=== PATIENT | female | born 1990 | race African-American/Black ===

== ENCOUNTER 2020-03-04 10:52 | Inpatient (IN) ==
[2020-03-04] MEDS ORDERED: CITRIC ACID/SODIUM CITRATE 30 ML UDCUP PO ONE (11:31)
[2020-03-04] MEDS: LABETALOL 100 MG TABLET PO SCH ×2 (11:52→21:21)
[2020-03-04 12:00] LABS: Basophils % 0.2 % (0.0-0.8); Eosinophils # 0.3 10*3/uL (0.0-0.87); Eosinophils % 2.1 % (0.00-10.9); Hematocrit 34.3 VOL% (35.7-47.0); Hemoglobin 11.9 GM/DL (12.0-16.0); Immature Granulocytes % 0.8 %; Lymphocytes # 1.4 10*3/uL (1.4-4.0); Lymphocytes % 11.5 % (21.3-54.2); Mean Corpuscular HGB Conc 34.7 GM/DL (32-36); Mean Corpuscular Volume 81.7 FL (87-102); Mean Platelet Volume 10.6 FL (9.6-12.0); Monocytes % 5.2 % (1.7-12.7); Neutrophils % 80.2 % (38.7-73.9); Platelet Count 272 T/CUMM (130-400); Red Cell Distribution Width 14.1 % (9.3-17.3); White Blood Count 12.4 T/CUMM (4-12)
[2020-03-04] MEDS ORDERED: LACTATED RINGERS 1,000 ML IV SCH (12:00)
[2020-03-04 12:12] LABS: INR 0.9; Partial Thromboplastin Time 28.3 SECS (23.9-33.8)
[2020-03-04 12:27] LABS: Albumin 2.8 G/DL (3.4-5.0); Bilirubin,Total 0.4 MG/DL (0.2-1.0); Calcium 8.6 MG/DL (8.5-10.1); Osmolality,Calculated 269.7 MOS/KG (273-304); Total Protein 7.2 G/DL (6.4-8.3)
[2020-03-04 16:58] LABS: Bilirubin,Urine Negative (Negative); Blood, Urine Negative (Negative); Glucose,Urine (UA) Negative (Negative); Ketones,Urine 5 mg/dL (Negative); Mucus,Urine Few /LPF (Occasional); Nitrite,Urine Negative (Negative); Protein,Urine 30 MG/DL; RBC,Urine 3 /HPF (0-4); Squamous Epithelial Cell,Urine Occasional /HPF (0-10); Urine Appearance CLEAR (Clear); Urine Color Yellow (Yellow); Urine Specific Gravity 1.023 (1.001-1.035); WBC,Urine 2 /HPF (0-6)
[2020-03-05] MEDS: LABETALOL 100 MG TABLET PO SCH (09:16)
[2020-03-05] MEDS ORDERED: LACTATED RINGERS 1,000 ML IV ONE ×2 (12:03→14:12)
[2020-03-05] MEDS ORDERED: FAMOTIDINE 20 MG/2 ML VIAL IV ONE (12:03)
[2020-03-05] MEDS ORDERED: LACTATED RINGERS 1,000 ML IV SCH ×2 (12:30→15:00)
[2020-03-05] MEDS ORDERED: CITRIC ACID/SODIUM CITRATE 30 ML UDCUP ONE (12:56)
[2020-03-05] MEDS ORDERED: OXYTOCIN 10 UNIT/ML VIAL IM ONE (13:30)
[2020-03-05] MEDS ORDERED: MORPHINE 10 MG/10 ML VIAL ONE (13:30)
[2020-03-05] MEDS ORDERED: OXYTOCIN/LR 30 UNIT/1,000 ML BAG IV ONE (13:30)
[2020-03-05] MEDS ORDERED: ONDANSETRON 4 MG/2 ML VIAL ONE (13:32)
[2020-03-05] MEDS ORDERED: BUPIVACAINE SPINAL 0.75% 2 ML AMP SPINAL ONE (13:33)
[2020-03-05] MEDS ORDERED: PHENYLEPHRINE 1 MG/10 ML SYRINGE IV ONE (13:36)
[2020-03-05] MEDS ORDERED: ceFAZolin 3,000 MG in SYRINGE 1 EACH IV ONE (14:00)
[2020-03-05 14:34] LABS: Cord Arterial Blood HCO3 29.5 MMOL/L
[2020-03-05 14:38] LABS: Cord Venous Blood PCO2 48.7 MMHG; Cord Venous Blood PO2 28.3 MMHG
[2020-03-05] MEDS ORDERED: RHO(D) IMMUNE GLOBULIN 300 MCG SYRINGE IM ONE (14:41)
[2020-03-05] MEDS ORDERED: SIMETHICONE CHEW 80 MG TABLET PO PRN (14:41)
[2020-03-05] MEDS ORDERED: OXYTOCIN/LR 20 UNIT/1,000 ML BAG IV ONE (14:41)
[2020-03-05] MEDS ORDERED: ACETAMINOPHEN 325 MG TABLET PO PRN (14:41)
[2020-03-05] MEDS ORDERED: ONDANSETRON 4 MG/2 ML VIAL IV PRN (14:41)
[2020-03-05] MEDS ORDERED: KETOROLAC 30 MG/1 ML VIAL ONE (14:44)
[2020-03-05] MEDS ORDERED: ceFAZolin 1,000 MG in SYRINGE 1 EACH IV SCH (15:00)
[2020-03-05 15:32] LABS: Bilirubin,Urine Negative (Negative); Blood, Urine Negative (Negative); Glucose,Urine (UA) Negative (Negative); Ketones,Urine 80 mg/dL (Negative); Mucus,Urine Occasional /LPF (Occasional); Nitrite,Urine Negative (Negative); Protein,Urine 30 MG/DL; RBC,Urine 1 /HPF (0-4); Squamous Epithelial Cell,Urine Occasional /HPF (0-10); Urine Appearance CLEAR (Clear); Urine Color Yellow (Yellow); Urine Specific Gravity 1.024 (1.001-1.035); WBC,Urine 1 /HPF (0-6)
[2020-03-05] MEDS ORDERED: diphenhydrAMINE 50 MG/1 ML VIAL IV PRN (17:52)
[2020-03-05] MEDS: DOCUSATE SODIUM 100 MG CAPSULE PO SCH (21:29)
[2020-03-05] MEDS: ceFAZolin 2,000 MG in PREMIX 1 EACH IV SCH (22:02)
[2020-03-05 22:18] LABS: Basophils % 0.3 % (0.0-0.8); Eosinophils # 0.2 10*3/uL (0.0-0.87); Eosinophils % 1.7 % (0.00-10.9); Hematocrit 33.2 VOL% (35.7-47.0); Hemoglobin 10.3 GM/DL (12.0-16.0); Immature Granulocytes % 0.5 %; Immature Granulocytes Absolute 0.06 #; Lymphocytes # 1.2 10*3/uL (1.4-4.0); Lymphocytes % 10.6 % (21.3-54.2); Mean Corpuscular Volume 88.3 FL (87-102); Mean Platelet Volume 9.6 FL (9.6-12.0); Monocytes % 3.5 % (1.7-12.7); Neutrophils % 83.4 % (38.7-73.9); Platelet Count 242 T/CUMM (130-400); Red Blood Count 3.76 MC/CUMM (3.8-5.5); Red Cell Distribution Width 14.1 % (9.3-17.3); White Blood Count 11.2 T/CUMM (4-12)
[2020-03-06 06:08] LABS: Basophils % 0.2 % (0.0-0.8); Eosinophils # 0.3 10*3/uL (0.0-0.87); Eosinophils % 2.4 % (0.00-10.9); Hematocrit 30.7 VOL% (35.7-47.0); Hemoglobin 10.1 GM/DL (12.0-16.0); Immature Granulocytes % 0.6 %; Immature Granulocytes Absolute 0.06 #; Lymphocytes % 9.4 % (21.3-54.2); Mean Corpuscular HGB Conc 32.9 GM/DL (32-36); Mean Platelet Volume 10.3 FL (9.6-12.0); Monocytes % 4.4 % (1.7-12.7); Platelet Count 247 T/CUMM (130-400); Red Blood Count 3.61 MC/CUMM (3.8-5.5); White Blood Count 10.4 T/CUMM (4-12)
[2020-03-06] MEDS: IBUPROFEN 800 MG TABLET PO PRN ×2 (06:34→15:26)
[2020-03-06] MEDS: ceFAZolin 2,000 MG in PREMIX 1 EACH IV SCH (06:35)
[2020-03-06] MEDS: MULTIVITAMIN (PRENATAL) TABLET PO SCH (09:41)
[2020-03-06] MEDS: DOCUSATE SODIUM 100 MG CAPSULE PO SCH ×2 (09:41→21:05)
[2020-03-06] MEDS: MAGNESIUM HYDROXIDE SUSP 30 ML UDCUP PO PRN ×2 (09:43→21:05)
[2020-03-06] MEDS ORDERED: METOCLOPRAMIDE 10 MG TABLET PO PRN (14:53)
[2020-03-07] MEDS: IBUPROFEN 800 MG TABLET PO PRN (04:10)
[2020-03-07 08:16] VITALS: BP 147/88
[2020-03-07] MEDS: MULTIVITAMIN (PRENATAL) TABLET PO SCH (08:49)
[2020-03-07] MEDS: DOCUSATE SODIUM 100 MG CAPSULE PO SCH (08:49)
== END 2020-03-07 12:15 | disposition home or self-care (01) | DRG 788 ==
LOC: N.LDOUT 10:52 → N.LD 10:58 → N.OB 03-05 17:44
PROVIDERS: ADMIT Obstetrics & Gynecology; ATTEND Obstetrics & Gynecology
PROC: LDCSECT (ICD-10-PCS; 2020-03-05 13:00)